=== PATIENT | male | born 1970 | race African-American/Black ===

== ENCOUNTER 2017-05-14 14:20 | Emergency (ER) | payer OTHER ==
[~2017-05-14] VITALS: Ht 167.6 cm; Wt 89.6 kg
[~2017-05-14 14:20] MED LIST: ZANTAC150 MG PO
[2017-05-14 16:14] LABS: AMPHETAMINE NEGATIVE (500 ng/mL); BARBITURATES NEGATIVE (200 ng/mL); BENZODIAZEPINES NEGATIVE (150 ng/mL); COCAINE NEGATIVE (150 ng/mL); INTERNAL CONTROLS VALID? YES; METHADONE NEGATIVE (200 ng/mL); METHAMPHETAMINE NEGATIVE (500 ng/mL); OPIATES (MORPHINE) NEGATIVE (100 ng/mL); OXYCODONE NEGATIVE (100 ng/mL); PHENCYCLIDINE NEGATIVE (25 ng/mL); PROPOXYPHENE NEGATIVE (300 ng/mL); THC CANNABINOIDS NEGATIVE (50 ng/mL); TRICYCLIC ANTIDEPRESSANTS NEGATIVE (300 ng/mL)
[2017-05-14] MEDS ORDERED: NAPROSYN500 MG PO (17:00)
[2017-05-14] MEDS ORDERED: SKELAXIN800 MG PO (17:00)
[2017-05-14 18:19] LABS: HEMATOCRIT 43.7 % (38.0-50.0); MCH 29.9 PG (29.0-34.0); MCHC 33.4 G/DL (30.0-36.0); MCV 89.5 FL (86-99); MEAN PLAT.VOLUME 10.7 uM^3 (9.0-12.4); PLATELET COUNT 108 K/uL (156-360); RBC DIS.WIDTH-CV 12.1 % (11.8-14.6); RBC DIS.WIDTH-SD 39.7 % (39-53); RED BLOOD COUNT 4.88 M/uL (4.00-5.50); WHITE BLOOD COUNT 4.1 K/uL (4.1-10.2)
[2017-05-14 18:30] LABS: CHLORIDE 106 mEq/L (99-109); POTASSIUM 4.1 mEq/L (3.7-5.4); SODIUM 141 mEq/L (136-147)
[2017-05-14 18:32] LABS: GLUCOSE 97 mg/dL (70-99)
[2017-05-14 18:33] LABS: ANION GAP 8 MEQ/L (2-14)
[2017-05-14 18:35] LABS: SERUM ETHYL ALCOHOL < 10 mg/dL
[2017-05-14 18:36] LABS: GFR ESTIMATE (CALCULATED) > 59 mL/min/
[2017-05-14 18:37] LABS: UREA NITROGEN (BUN) 9 mg/dL (9-23)
[2017-05-14 19:12] VITALS: BP 147/89
== END 2017-05-14 19:28 | disposition home or self-care (01) ==
LOC: EME 14:20
PROVIDERS: Physician Assistant
DX: S39.012A Strain of muscle, fascia and tendon of lower back, initial encounter (principal); V63.5XXA Driver of heavy transport vehicle injured in collision with car, pick-up truck or van in traffic accident, initial encounter; Y92.411 Interstate highway as the place of occurrence of the external cause
CPT/HCPCS: 80048; 85027; 99281; 99285; G0480